=== PATIENT | female | born 1965 | race Caucasian/White ===

== ENCOUNTER 2020-04-04 22:39 | Inpatient (IN) | payer OTHER ==
[~2020-04-04] VITALS: Ht 165.1 cm; Wt 113.1 kg
[~2020-04-04 22:39] MED LIST: HYDMOR2 PO; PROM25 PO
[2020-04-04 22:58] LABS: BASOPHILS ABSOLUTE AUTO 0.11 K/mm3 (0.00-0.23); BASOPHILS PERCENT AUTO 0 % (0-2); EOSINOPHILS ABSOLUTE AUTO 0.02 K/mm3 (0.00-0.68); EOSINOPHILS PERCENT AUTO 0 % (0-6); Hematocrit 36.8 % (33.0-51.0); Hemoglobin 12.1 g/dL (11.5-16.0); IMMATURE GRAN ABSOLUTE AUTO 1.23 K/mm3 (0.00-0.10); IMMATURE GRAN PERCENT AUTO 4 % (0-1); LYMPHOCYTES ABSOLUTE AUTO 2.17 K/mm3 (0.84-5.20); LYMPHOCYTES PERCENT AUTO 8 % (21-46); MONOCYTES ABSOLUTE AUTO 1.27 K/mm3 (0.16-1.47); MONOCYTES PERCENT AUTO 4 % (4-13); Mean Corpuscular HGB 28.1 pg (26.0-34.0); Mean Corpuscular HGB Conc 32.9 g/dL (31.5-36.5); Mean Corpuscular Volume 86 fL (80-100); Mean Platelet Volume 11.5 fL (9.1-12.4); NEUTROPHILS ABSOLUTE AUTO 23.94 K/mm3 (1.96-9.15); NEUTROPHILS PERCENT AUTO 83 % (41-73); Platelet Count 338 K/mm3 (150-400); RDW Coefficient Variation 15.3 % (11.7-14.2); RDW Standard Deviation 47.6 fL (35.1-46.3); White Blood Cell Count 28.74 K/mm3 (4.00-11.30)
[2020-04-04 23:16] LABS: Alanine Aminotransfer (ALT/SGP 195 U/L (12-78); Albumin, Blood 1.7 g/dL (3.4-5.0); Albumin/Globulin Ratio 0.3 (0.8-1.8); Alk Phos 284 U/L (50-136); Anion Gap 10 mmol/L (6-16); Aspartate Aminotrans (AST/SGOT 181 U/L (12-37); Bilirubin, Total 5.2 mg/dL (0.1-1.0); Blood Urea Nitrogen 18 mg/dL (8-24); CO2, Blood 24 mmol/L (21-32); Calcium, Blood 8.1 mg/dL (8.5-10.1); Chloride, Blood 100 mmol/L (98-108); Creatinine, Blood 0.86 mg/dL (0.40-1.00); Globulin, Blood 5.5 g/dL (2.2-4.0); Glomerular Filtration Rate >60 (60-); Glucose, Blood 135 mg/dL (70-99); Potassium, Blood 3.7 mmol/L (3.5-5.5); Sodium, Blood 134 mmol/L (136-145); Total Protein, Blood 7.2 g/dL (6.4-8.2)
[2020-04-05 01:11] LABS: International Normalized Ratio 1.15; Prothrombin Time Results 12.2 Sec (9.7-11.5)
[2020-04-05 04:59] LABS: Influenza A, PCR Negative (NEGATIVE); Influenza B, PCR Negative (NEGATIVE); Resp Syncytial Virus, PCR Negative (NEGATIVE); SARS-Cov-2 (COVID-19) PCR, MMC Negative (NEGATIVE)
[2020-04-05 08:05] LABS: Source, Urine Clean Catch
[2020-04-05 08:12] LABS: Blood, Urine 2+ (Neg); Color, Urine Amber (P-Yellow); Glucose Qualitative, Urine Neg (Neg); Ketones, Urine 1+ (Neg); Leukocyte Esterase, Urine 1+ (Neg); Nitrite, Urine Pos (Neg); Protein, Urine 2+ (Neg); Urobilinogen, Urine 4+ (Normal)
[2020-04-05 08:23] LABS: Appearance, Urine Hazy (Clear); Bilirubin, Urine 3+ (Neg)
[2020-04-05 08:26] LABS: Bacteria Mod /hpf; Squamous Epithelial Cells Mod /hpf (Few)
[2020-04-05 08:28] LABS: Granular Casts 0-2 /lpf (0)
--- NOTE | 2020-04-05 09:30 | NUR ---
pt to mri via gurney. pt very anxious to be at hospital due to previous experience and anxiety related to mri. patient educated on breathing techniques and stated she will do the mri. boyfriend at bedside as patient desats with anxiety. on 3L at this time sats 90% or higher. pain managed when in bed.
--- NOTE | 2020-04-05 09:33 | NUR ---
pt arrived from er via gurney, able to transfer with minimal assist, she reports pain with movement and nausea. once in bed pain is better. aa0x4. denies pain anywhere but r side abdomen. pt educated on npo status and iv fluids infusing from er. swabs provided for comfort and call light in reach.
[2020-04-05 12:05] LABS: Albumin, Blood 1.7 g/dL (3.4-5.0); Albumin/Globulin Ratio 0.3 (0.8-1.8); Bilirubin, Total 4.9 mg/dL (0.1-1.0); Bun/Creatinine Ratio 24.5 (12.0-20.0); Calcium, Blood 7.3 mg/dL (8.5-10.1); Creatinine, Blood 1.1 mg/dL (0.40-1.00); Globulin, Blood 4.9 g/dL (2.2-4.0); Potassium, Blood 3.7 mmol/L (3.5-5.5); Total Protein, Blood 6.6 g/dL (6.4-8.2)
--- NOTE | 2020-04-05 17:37 | NUR ---
SHIFT SUMMARY PT AA0X4. PAIN MANAGED PER EMAR. PT CURRENTLY SITLL OUT IN SURGERY. PT VOIDING DURING SHIFT, REQUIRING 3L OXYGEN. PT DESATS WITH ANXIETY BUT RECOVERS ONCE COACHED ON BREATHING. PT WAS NPO BEFORE LEAVING FOR SURGERY PER ORDERS.
--- NOTE | 2020-04-05 19:10 | NUR ---
RECIEVED CRITICAL VALUE FROM [facility] IN LAB OF GR[facility] - RODS IN [address] ROMERO, AWAITING RETURN CALL. NIGHT TIME INSURANCE OFFICE MANAGER AWARE, WILL PASS OFF TO RN TAKING OVER CARE OF PT.
--- NOTE | 2020-04-06 04:34 | NUR ---
SHIFT SUMMARY POD0 LAP CIARRA, A/O, WILEY. CAME BACK FROM PACU W/ BIPAP, TRANSITIONED TO NC @ 5L WHEN STABLE AND SAFE TO DO SO W/ SAT > 90%, TOLERATING CLEAR FLUIDS, VOIDING WELL, NO BM THIS SHIFT, UP TWICE SO FAR THIS SHIFT, PAIN CONTROLLED PER EMAR. PT ANXIOUS BUT STABLE W/ SO IN ROOM @ BEDSIDE. CALL LIGHT IN REACH, WILL CONTINUE TO MONITOR AND REPORT TO ONCOMING DAY RN.
[2020-04-06 08:27] LABS: BASOPHILS ABSOLUTE AUTO 0.11 K/mm3 (0.00-0.23); BASOPHILS PERCENT AUTO 1 % (0-2); EOSINOPHILS PERCENT AUTO 0 % (0-6); Hematocrit 32.9 % (33.0-51.0); Hemoglobin 10.6 g/dL (11.5-16.0); IMMATURE GRAN ABSOLUTE AUTO 0.48 K/mm3 (0.00-0.10); IMMATURE GRAN PERCENT AUTO 2 % (0-1); LYMPHOCYTES ABSOLUTE AUTO 1.05 K/mm3 (0.84-5.20); LYMPHOCYTES PERCENT AUTO 4 % (21-46); MONOCYTES PERCENT AUTO 2 % (4-13); Mean Corpuscular HGB 28.6 pg (26.0-34.0); Mean Corpuscular HGB Conc 32.2 g/dL (31.5-36.5); Mean Corpuscular Volume 89 fL (80-100); Mean Platelet Volume 11.1 fL (9.1-12.4); NEUTROPHILS ABSOLUTE AUTO 21.61 K/mm3 (1.96-9.15); NEUTROPHILS PERCENT AUTO 91 % (41-73); Platelet Count 254 K/mm3 (150-400); RDW Coefficient Variation 15.8 % (11.7-14.2); RDW Standard Deviation 51.6 fL (35.1-46.3); Red Blood Cell Count 3.71 M/mm3 (3.80-5.20); White Blood Cell Count 23.75 K/mm3 (4.00-11.30)
[2020-04-06 09:07] LABS: Alanine Aminotransfer (ALT/SGP 928 U/L (12-78); Albumin, Blood 1.5 g/dL (3.4-5.0); Albumin/Globulin Ratio 0.3 (0.8-1.8); Alk Phos 276 U/L (50-136); Anion Gap 9 mmol/L (6-16); Aspartate Aminotrans (AST/SGOT 1343 U/L (12-37); Bilirubin, Total 3.2 mg/dL (0.1-1.0); Blood Urea Nitrogen 36 mg/dL (8-24); Bun/Creatinine Ratio 54.2 (12.0-20.0); CO2, Blood 23 mmol/L (21-32); Calcium, Blood 7.6 mg/dL (8.5-10.1); Chloride, Blood 102 mmol/L (98-108); Creatinine, Blood 0.66 mg/dL (0.40-1.00); Globulin, Blood 4.9 g/dL (2.2-4.0); Glomerular Filtration Rate >60 (60-); Glucose, Blood 155 mg/dL (70-99); Potassium, Blood 4.2 mmol/L (3.5-5.5); Sodium, Blood 134 mmol/L (136-145); Total Protein, Blood 6.4 g/dL (6.4-8.2)
--- NOTE | 2020-04-06 15:24 | NUR ---
Uponreceiving an admit referral for spiritual care, I visit patient. Patient is sitting in a chair and alert. Patient's friend, Billy, is present in the room. Patient tells me about the trauma she expereinced when her in this hospital and so the anxiety she had as a patient coming back to the same location and needing surgery. Patient said that she was almost unmanagable. On the other side of a successful surgery patient states that she is more calm . Patient talks about her yancy and the love and help she has gained from the people in jewish and the times of prayer is immeasurable. Patient welcomes prayer. I gladly provide prayer. I also normalize her experience and provide anxiety containment. Patient responds well and and shows signs of increased peace. I will continue to remain available to patient and family.
--- NOTE | 2020-04-06 20:15 | NUR ---
SHIFT SUMMARY PT IS POD#1 FROM [facility] WITH DR. ROMERO. PAIN MANAGED WITH TYLENOL, ADVIL AND DILAUDID. PT AMBULATED X2 IN THE HALWAY. PT EDUCATED/ENCOURAGED TO USE IS. PT REMAINS ON 4L O2 AND DESATURATES INTO THE LOW 80'S WHEN OFF OXYGEN. PT VOIDING WELL AND TOLERATING CLEAR LIQUID. PT DENIES PASSING FLATUS. VSS. REPORT GIVEN TO AKHIL GILBERT.
--- NOTE | 2020-04-07 03:41 | NUR ---
SHIFT SUMMARY: POD 2 LAP RAJIV PATIENT IS ALERT AND ORIENTED X4 WHILE AWAKE. PATIENT HAS BEEN SLEEPING MAJORITY OF THE SHIFT BUT IS EASILY AROUSABLE. PATIENT IS ON 4L OXYGEN NC SINCE SHE DESATURATES QUICKLY WHEN AMBULATING TO BATHROOM OR IN HALLWAYS. WHEN PATIENT IS ON THE 4L OXYGEN HER OXYGEN SATURATIONS ARE >90%. ENCOURAGED INCENTIVE SPIROMETER USE WHILE AWAKE. PAIN IS MANAGED WITH TYLENOL, ADVIL, AND IV DILAUDID. SHE AMBULATED A TOTAL OF 3 TIMES BEFORE GOING TO BED. SHE IS A SBA WITH GAIT BELT AND FWW. SHE TOLERATES AMBULATION WELL. PATIENT HAS BEEN VOIDING AND TOLERATING PO INTAKE. SHE HAS A RUTH DRAIN AND 3 LAP SITES WELL AN ABD BINDER ON. RUTH DRAIN HAS RED OUTPUT COMING FROM IT. ABD BINDER AND LAP SITES ARE C/D/I. THE PLAN IS TO WEAN PATIENT OFF OF OXYGEN IF POSSIBLE AND CONTINUE TO ENCOURAGE AMBULATION/INCENTIVE SPIROMETER USE.
[2020-04-07 05:39] LABS: BASOPHILS ABSOLUTE AUTO 0.07 K/mm3 (0.00-0.23); BASOPHILS PERCENT AUTO 0 % (0-2); EOSINOPHILS ABSOLUTE AUTO 0.01 K/mm3 (0.00-0.68); EOSINOPHILS PERCENT AUTO 0 % (0-6); Hematocrit 34.2 % (33.0-51.0); Hemoglobin 10.7 g/dL (11.5-16.0); IMMATURE GRAN ABSOLUTE AUTO 0.51 K/mm3 (0.00-0.10); IMMATURE GRAN PERCENT AUTO 3 % (0-1); LYMPHOCYTES ABSOLUTE AUTO 1.71 K/mm3 (0.84-5.20); LYMPHOCYTES PERCENT AUTO 9 % (21-46); MONOCYTES ABSOLUTE AUTO 0.67 K/mm3 (0.16-1.47); MONOCYTES PERCENT AUTO 4 % (4-13); Mean Corpuscular HGB 27.9 pg (26.0-34.0); Mean Corpuscular HGB Conc 31.3 g/dL (31.5-36.5); Mean Corpuscular Volume 89 fL (80-100); Mean Platelet Volume 11.1 fL (9.1-12.4); NEUTROPHILS ABSOLUTE AUTO 15.37 K/mm3 (1.96-9.15); NEUTROPHILS PERCENT AUTO 84 % (41-73); NRBC ABSOLUTE 0.02 K/mm3 (0.00-0.02); NRBC Auto 0.1 /100 WBC (0.0-0.2); Platelet Count 268 K/mm3 (150-400); RDW Coefficient Variation 15.9 % (11.7-14.2); RDW Standard Deviation 51.5 fL (35.1-46.3); Red Blood Cell Count 3.83 M/mm3 (3.80-5.20); White Blood Cell Count 18.34 K/mm3 (4.00-11.30)
[2020-04-07 06:04] LABS: Albumin, Blood 1.6 g/dL (3.4-5.0); Albumin/Globulin Ratio 0.3 (0.8-1.8); Bilirubin, Total 2.3 mg/dL (0.1-1.0); Bun/Creatinine Ratio 33.1 (12.0-20.0); Calcium, Blood 7.8 mg/dL (8.5-10.1); Creatinine, Blood 1.21 mg/dL (0.40-1.00); Globulin, Blood 4.8 g/dL (2.2-4.0); Potassium, Blood 3.8 mmol/L (3.5-5.5); Total Protein, Blood 6.4 g/dL (6.4-8.2)
--- NOTE | 2020-04-07 09:22 | NUR ---
04/07/20 0922 Malia Mcmanus VERIFICATIONS: EDIT CHART.
--- NOTE | 2020-04-07 18:27 | NUR ---
SHIFT SUMMARY PT IS POD#2 [address] [facility] WITH [address]. ROMERO. PT HAS BEEN ABLE TO AMBULATE INDEPENDENTLY AND REQUIRES LITTLE ASSISTANCE WITH LINES AND TUBES. PT PASSED FLATUS TODAY. SHE HAS TOLERATED REGULAR DIET. DR. GUEVARA WAS CONSULTED TO MANAGED RENAL AND LIVER CONCERS. DR. GUEVARA ALSO MADE ADJUSTMENTS TO ANTIBIOTICS. VSS. WILL MONITOR UNTIL REPORT TO ONCOMING RN.
--- NOTE | 2020-04-08 03:03 | NUR ---
SHIFT SUMMARY: POD 3 LAP RAJIV PATIENT IS ALERT AND ORIENTED X4 WHILE AWAKE. SHE HAS BEEN ABLE TO AMBULATE INDEPENDENTLY IN THE ROOM, BUT WILL CALL FOR ASSISTANCE WITH LINES AND TUBES. VS ARE WNL AND IS ON 2L OXYGEN NC. HER OXYGEN SATS ARE >90%. PAIN IS CONTROLLED WITH PO ULTRAM AND IV DILAUDID. SHE IS ABLE TO PASS GAS DURING THE NIGHT. SHE IS TOLERATING PO INTAKE AND IS VOIDING. HER RUTH DRAIN HAS SEROSANGUINEOUS OUTPUT. BULB IS COMPRESSED. ABD BINDER WAS RE-ADJUSTED FOR PATIENT TO GIVE HER MORE COMFORT. SHE WAS ABLE TO AMBULATE IN THE HALLWAY THIS MORNING. SHE CALLS APPROPRIATELY. BOYFRIEND IS IN THE ROOM WITH HER AND ASSISTS WHEN POSSIBLE. CALL LIGHT WITHIN REACH. THE PLAN IS TO MANAGE RENAL AND LIVER CONCERNS WITH DR. GUEVARA WELL CONTINUE ABX WITH FLUIDS.
[2020-04-08 08:37] LABS: BASOPHILS ABSOLUTE AUTO 0.05 K/mm3 (0.00-0.23); BASOPHILS PERCENT AUTO 0 % (0-2); EOSINOPHILS ABSOLUTE AUTO 0.04 K/mm3 (0.00-0.68); EOSINOPHILS PERCENT AUTO 0 % (0-6); Hematocrit 31.7 % (33.0-51.0); Hemoglobin 9.8 g/dL (11.5-16.0); IMMATURE GRAN ABSOLUTE AUTO 0.86 K/mm3 (0.00-0.10); IMMATURE GRAN PERCENT AUTO 5 % (0-1); LYMPHOCYTES ABSOLUTE AUTO 1.65 K/mm3 (0.84-5.20); LYMPHOCYTES PERCENT AUTO 10 % (21-46); MONOCYTES ABSOLUTE AUTO 1.12 K/mm3 (0.16-1.47); MONOCYTES PERCENT AUTO 7 % (4-13); Mean Corpuscular HGB 27.6 pg (26.0-34.0); Mean Corpuscular HGB Conc 30.9 g/dL (31.5-36.5); Mean Corpuscular Volume 89 fL (80-100); NEUTROPHILS ABSOLUTE AUTO 13.39 K/mm3 (1.96-9.15); NEUTROPHILS PERCENT AUTO 78 % (41-73); Platelet Count 215 K/mm3 (150-400); RDW Coefficient Variation 15.6 % (11.7-14.2); RDW Standard Deviation 51.9 fL (35.1-46.3); Red Blood Cell Count 3.55 M/mm3 (3.80-5.20); White Blood Cell Count 17.11 K/mm3 (4.00-11.30)
[2020-04-08 09:00] LABS: Alanine Aminotransfer (ALT/SGP 678 U/L (12-78); Albumin, Blood 1.5 g/dL (3.4-5.0); Albumin/Globulin Ratio 0.3 (0.8-1.8); Alk Phos 290 U/L (50-136); Anion Gap 6 mmol/L (6-16); Aspartate Aminotrans (AST/SGOT 466 U/L (12-37); Blood Urea Nitrogen 22 mg/dL (8-24); Bun/Creatinine Ratio 30.4 (12.0-20.0); CO2, Blood 26 mmol/L (21-32); Calcium, Blood 7.3 mg/dL (8.5-10.1); Chloride, Blood 104 mmol/L (98-108); Creatinine, Blood 0.72 mg/dL (0.40-1.00); Globulin, Blood 4.6 g/dL (2.2-4.0); Glomerular Filtration Rate >60 (60-); Glucose, Blood 130 mg/dL (70-99); Potassium, Blood 4.2 mmol/L (3.5-5.5); Sodium, Blood 136 mmol/L (136-145); Total Protein, Blood 6.1 g/dL (6.4-8.2)
--- NOTE | 2020-04-08 12:12 | NUR ---
Patient is lying in bed. Patient's friend, Billy, is bedside. Billy tells me about patient's rough night and the new diagnosis of Pneumonia. He explains that she is down today and could use extra support. Patient tells me personal information about her anxiety. I provide therapeutic listening, pastoral encouraging classification counselor and prayer. Patient responds well and states that she feels much more hopeful. I will continue to assist patient with the spiritual content that she needs to stay up and motivated to be well.
--- NOTE | 2020-04-08 18:04 | NUR ---
Shift summary Pain controlled with Tramadol and 1mg Dilaudid every 4 hours. VSS. Patient on 2L O2 NC. Binder in place. RUTH drain putting out small amount sanguinous fluid. Patient independent to the bathroom. Had two soft brown stools today. Voiding. Patient tolerating small amount regular diet. Call light within patient reach.
[2020-04-08 18:16] LABS: Percent Saturation 21.1 % (15.0-50.0)
--- NOTE | 2020-04-09 04:36 | NUR ---
SHIFT SUMMARY PT IS A/O X4. IND IN ROOM. TOLERATING PO INTAKE, VOIDING, HAVING BMS. PT HAS HAD SOME NAUSEA AND PAIN OVERNIGHT AND HAS BEEN MEDICATED PER ORDERS PRN. USING 2L O2 NC WITH HUMIDIFIER. SEEN BY RT AND PROVIDED WITH FLUTTER THERAPY. IV FLUIDS INFUSING PER ORDERS OVERNIGHT. PT RESTING IN BED AT THIS TIME WITH CALL LIGHT IN REACH.
[2020-04-09 05:36] LABS: Hematocrit 29.3 % (33.0-51.0); Mean Corpuscular HGB 27.8 pg (26.0-34.0); Mean Corpuscular HGB Conc 30.7 g/dL (31.5-36.5); Mean Corpuscular Volume 90 fL (80-100); Mean Platelet Volume 10.9 fL (9.1-12.4); Platelet Count 140 K/mm3 (150-400); RDW Coefficient Variation 15.5 % (11.7-14.2); RDW Standard Deviation 51.3 fL (35.1-46.3); Red Blood Cell Count 3.24 M/mm3 (3.80-5.20); White Blood Cell Count 14.42 K/mm3 (4.00-11.30)
[2020-04-09 06:05] LABS: Alanine Aminotransfer (ALT/SGP 428 U/L (12-78); Albumin, Blood 1.4 g/dL (3.4-5.0); Albumin/Globulin Ratio 0.3 (0.8-1.8); Alk Phos 256 U/L (50-136); Anion Gap 5 mmol/L (6-16); Aspartate Aminotrans (AST/SGOT 170 U/L (12-37); BASOPHILS ABSOLUTE MAN 0.14 K/mm3 (0.00-0.23); BASOPHILS PERCENT MAN 1 % (0-2); Bilirubin, Total 1.5 mg/dL (0.1-1.0); Blood Urea Nitrogen 13 mg/dL (8-24); Bun/Creatinine Ratio 20.7 (12.0-20.0); CO2, Blood 27 mmol/L (21-32); Calcium, Blood 7.6 mg/dL (8.5-10.1); Chloride, Blood 104 mmol/L (98-108); Creatinine, Blood 0.63 mg/dL (0.40-1.00); EOSINOPHILS PERCENT MAN 0 % (0-6); Globulin, Blood 4.4 g/dL (2.2-4.0); Glomerular Filtration Rate >60 (60-); Glucose, Blood 127 mg/dL (70-99); LYMPHOCYTES ABSOLUTE MAN 1.87 K/mm3 (0.84-5.20); LYMPHOCYTES PERCENT MAN 13 % (21-46); METAMYELOCYTE ABSOLUTE MAN 0.57 K/mm3 (0.00-0.00); METAMYELOCYTE PERCENT MAN 4 % (0-0); MONOCYTES ABSOLUTE MAN 1.15 K/mm3 (0.16-1.47); MONOCYTES PERCENT MAN 8 % (4-13); NEUTROPHILS ABSOLUTE MAN 10.67 K/mm3 (1.96-9.15); Potassium, Blood 4.4 mmol/L (3.5-5.5); SEG NEUTROPHILS PERCENT MAN 74 % (41-73); Sodium, Blood 136 mmol/L (136-145); TOTAL CELLS COUNTED 100; Total Protein, Blood 5.8 g/dL (6.4-8.2)
--- NOTE | 2020-04-09 12:51 | NUR ---
PT TELLS ME SHE WILL AMBULATE AFTER RUTH IS REMOVED.
--- NOTE | 2020-04-09 14:29 | NUR ---
[id number] DR ROMERO HERE TO SEE PATIENT. RUTH DRAIN REMOVED BY DR ROMERO. INSTRUCTED PATIENT TO CONTINUE USING IS AND FLUTTER VALVE HOURLY AND TO AMBULATE. PT TELLS ME SHE WILL AMBULATE AFTER 1500 WHEN SHE HAS RECEIVED HER NEXT DOSE OF PAIN MEDICATION
--- NOTE | 2020-04-09 15:55 | NUR ---
Patient immediately tells me that she has improved strength and less pain and that she may be going home tomorrow. Billy is present in the rm and they both tell the story of their friendship that turned into a romance and about the deep betrayal, brokeness and pain that they had to work through to allow each other into their lives. They discuss their yancy and the ups and downs of it all. They both have stories of great tragedy and great triumph. I normalize their experience and highlight all that they have overcome. I encourage self-care and I provide spiritual guidance and prayer. They respond well and shows signs of being encouraged in thier yancy.
--- NOTE | 2020-04-09 17:45 | NUR ---
SUMMARY PT STATES SHE GOT UP TO BATHROOM AND IS NOW HAVING 9/10 ABD PAIN. PT WITH AUDIBLE WHEEZES, RAPID RESPIRATIONS, PT CALMED WITH REASSUSRANCE WITH DECREASEIN RESPIRATIONS AND RESOLUTION OF WHEEZES. EDUCATION TO PATIENT AND HER REGARDING AMBULATION, OOB, USE OF IS AND FLUTTER VALVE. PT DECLINES AMBULATION OR SHOWER. UP TO CHAIR WITH STANDBY ASSIST. PTS AT BEDSIDE. ABD BINDER IN PLACE
[2020-04-10 04:56] LABS: Hematocrit 30.4 % (33.0-51.0); Hemoglobin 9.2 g/dL (11.5-16.0); Mean Corpuscular HGB 27.6 pg (26.0-34.0); Mean Corpuscular HGB Conc 30.3 g/dL (31.5-36.5); Mean Corpuscular Volume 91 fL (80-100); Mean Platelet Volume 11.5 fL (9.1-12.4); Platelet Count 149 K/mm3 (150-400); RDW Coefficient Variation 15.3 % (11.7-14.2); RDW Standard Deviation 50.9 fL (35.1-46.3); Red Blood Cell Count 3.33 M/mm3 (3.80-5.20)
[2020-04-10 05:14] LABS: Anion Gap 4 mmol/L (6-16); Blood Urea Nitrogen 8 mg/dL (8-24); Bun/Creatinine Ratio 14.4 (12.0-20.0); CO2, Blood 31 mmol/L (21-32); Calcium, Blood 7.5 mg/dL (8.5-10.1); Chloride, Blood 104 mmol/L (98-108); Creatinine, Blood 0.56 mg/dL (0.40-1.00); Glomerular Filtration Rate >60 (60-); Glucose, Blood 121 mg/dL (70-99); Potassium, Blood 4.3 mmol/L (3.5-5.5); Sodium, Blood 139 mmol/L (136-145)
--- NOTE | 2020-04-10 05:41 | NUR ---
SHIFT SUMMARY PT IS A/O X4 AND IND IN ROOM. AT BEDSIDE OVERNIGHT AND ASSISTING WITH CARE. TOLERATING PO INTAKE AND VOIDING. REPORTS PASSING FLATUS AND BM'S. PAIN MANAGED WITH NORCO X2 AND ULTRAM PER ORDERS. UP TO CHAIR OVERNIGHT WITH ABD BINDER IN PLACE. NO ACUTE CHANGES OVERNIGHT. RESTING IN CHAIR WITH CALL LIGHT IN REACH.
[2020-04-10 06:09] LABS: BAND PERCENT MAN 2 % (0-8); BASOPHILS PERCENT MAN 0 % (0-2); EOSINOPHILS ABSOLUTE MAN 0.12 K/mm3 (0.00-0.68); EOSINOPHILS PERCENT MAN 1 % (0-6); LYMPHOCYTES ABSOLUTE MAN 0.49 K/mm3 (0.84-5.20); LYMPHOCYTES PERCENT MAN 4 % (21-46); METAMYELOCYTE ABSOLUTE MAN 0.12 K/mm3 (0.00-0.00); METAMYELOCYTE PERCENT MAN 1 % (0-0); MONOCYTES ABSOLUTE MAN 0.49 K/mm3 (0.16-1.47); MONOCYTES PERCENT MAN 4 % (4-13); MYELOCYTE ABSOLUTE MAN 0.36 K/mm3 (0.00-0.00); MYELOCYTE PERCENT MAN 3 % (0-0); SEG NEUTROPHILS PERCENT MAN 85 % (41-73); TOTAL CELLS COUNTED 100
[2020-04-10] MEDS ORDERED: HYDR1TAB94 PO (11:30)
[2020-04-10] MEDS ORDERED: CEPH500 PO ×2 (14:22→21:15)
[2020-04-10] MEDS ORDERED: METR500 PO (14:23)
[2020-04-10] MEDS ORDERED: PROBIOTIC1 EA13 PO (14:24)
--- NOTE | 2020-04-10 15:03 | NUR ---
[address] [facility] [place] DELIVERED PORTABLE OXYGEN TANK TO BEDSIDE.WRITTEN NORCO PRESCRIPTION GIVEN TO PATIENT. PRESCRIPTIONS FAXED TO [facility]. DISCHARGE INSTRUCTIONS REVIEWED WITH PATIENT AND PATIENTS BOYFRIEND AND BOTH VERBALIZE UNDERSTANDING OF DISCHARGE INSTRUCTIONS. PT TEARFUL AT TIMES, TELLS ME SHE IS HAVING A LOT OF ANXIETY BUT THAT SHE FEELS READY TO DISCHARGE TO HOME. PT DISCHARGED TO HOME WITH HER BOYFRIEND WHO WILL BE STAYING WITH PATIENT TO ASSIST HER
== END 2020-04-10 14:45 | disposition home or self-care (01) | DRG 853 ==
LOC: ER 22:39 → SURS 04-05 04:35 → ERHOLD 04-05 04:35 → SURS 04-05 08:06
PROVIDERS: Emergency Medicine; Internal Medicine; Student in an Organized Health Care Education/Training Program; ADMIT Surgery
PROC: BF141ZZ Fluoroscopy of Gallbladder, Bile Ducts and Pancreatic Ducts using Low Osmolar Contrast (ICD-10-PCS; 2020-04-05)
PROC: 5A09357 Assistance with Respiratory Ventilation, Less than 24 Consecutive Hours, Continuous Positive Airway Pressure (ICD-10-PCS; 2020-04-05)
PROC: 0FT44ZZ Resection of Gallbladder, Percutaneous Endoscopic Approach (ICD-10-PCS; principal; 2020-04-05 15:00)
DX: A41.51 Sepsis due to Escherichia coli [E. coli] (principal); J96.01 Acute respiratory failure with hypoxia; N17.0 Acute kidney failure with tubular necrosis; K80.00 Calculus of gallbladder with acute cholecystitis without obstruction; Z68.41 Body mass index [BMI] 40.0-44.9, adult; R65.20 Severe sepsis without septic shock; E66.01 Morbid (severe) obesity due to excess calories; K82.A1 Gangrene of gallbladder in cholecystitis; F41.0 Panic disorder [episodic paroxysmal anxiety]; E80.6 Other disorders of bilirubin metabolism; Z20.822 Contact with and (suspected) exposure to COVID-19
CPT/HCPCS: 0241U; 36415; 71046; 74177; 74300; 76705; 80048; 80053; 81001; 82607; 82728; 82746; 83540; 83550; 83605; 83690; 85025; 85610; 87040; 87077; 87086; 87186; 88304; 94660; 94667; 94761; 96365; 96375; 99285-25; A9270; C1729; J0696; J1100; J1170; J1650; J2185; J2250; J2270; J2405; J2704; J3010; J7030; J7050; J7120; Q9967

== ENCOUNTER 2020-04-29 11:35 | Inpatient (IN) | payer OTHER ==
[~2020-04-29] VITALS: Ht 165.1 cm; Wt 110.0 kg
[~2020-04-29 11:35] MED LIST changes: +CEPH500 PO; +HYDR1TAB94 PO; +METR500 PO; +PROBIOTIC1 EA13 PO
[2020-04-29 12:00] LABS: BASOPHILS ABSOLUTE AUTO 0.04 K/mm3 (0.00-0.23); BASOPHILS PERCENT AUTO 0 % (0-2); EOSINOPHILS ABSOLUTE AUTO 0.01 K/mm3 (0.00-0.68); EOSINOPHILS PERCENT AUTO 0 % (0-6); Hematocrit 34.1 % (33.0-51.0); Hemoglobin 11.1 g/dL (11.5-16.0); IMMATURE GRAN ABSOLUTE AUTO 0.14 K/mm3 (0.00-0.10); IMMATURE GRAN PERCENT AUTO 1 % (0-1); LYMPHOCYTES ABSOLUTE AUTO 1.44 K/mm3 (0.84-5.20); LYMPHOCYTES PERCENT AUTO 12 % (21-46); MONOCYTES ABSOLUTE AUTO 0.64 K/mm3 (0.16-1.47); MONOCYTES PERCENT AUTO 6 % (4-13); Mean Corpuscular HGB 27.7 pg (26.0-34.0); Mean Corpuscular HGB Conc 32.6 g/dL (31.5-36.5); Mean Corpuscular Volume 85 fL (80-100); Mean Platelet Volume 9.3 fL (9.1-12.4); NEUTROPHILS PERCENT AUTO 81 % (41-73); Platelet Count 502 K/mm3 (150-400); RDW Coefficient Variation 15.2 % (11.7-14.2); RDW Standard Deviation 47.5 fL (35.1-46.3); Red Blood Cell Count 4.01 M/mm3 (3.80-5.20); White Blood Cell Count 11.57 K/mm3 (4.00-11.30)
[2020-04-29 12:21] LABS: Alanine Aminotransfer (ALT/SGP 41 U/L (12-78); Albumin, Blood 2.7 g/dL (3.4-5.0); Albumin/Globulin Ratio 0.5 (0.8-1.8); Alk Phos 309 U/L (50-136); Anion Gap 9 mmol/L (6-16); Aspartate Aminotrans (AST/SGOT 32 U/L (12-37); Bilirubin, Total 0.8 mg/dL (0.1-1.0); Blood Urea Nitrogen 9 mg/dL (8-24); Bun/Creatinine Ratio 12.4 (12.0-20.0); CO2, Blood 23 mmol/L (21-32); Chloride, Blood 103 mmol/L (98-108); Creatinine, Blood 0.73 mg/dL (0.40-1.00); Globulin, Blood 5.6 g/dL (2.2-4.0); Glomerular Filtration Rate >60 (60-); Glucose, Blood 117 mg/dL (70-99); Potassium, Blood 3.9 mmol/L (3.5-5.5); Sodium, Blood 135 mmol/L (136-145); Total Protein, Blood 8.3 g/dL (6.4-8.2)
[2020-04-29 21:52] LABS: Influenza A, PCR NEGATIVE (NEGATIVE); Influenza B, PCR NEGATIVE (NEGATIVE); Resp Syncytial Virus, PCR NEGATIVE (NEGATIVE); SARS-Cov-2 (COVID-19) PCR, MMC NEGATIVE (NEGATIVE)
[2020-04-30 05:14] LABS: BASOPHILS ABSOLUTE AUTO 0.06 K/mm3 (0.00-0.23); BASOPHILS PERCENT AUTO 1 % (0-2); EOSINOPHILS ABSOLUTE AUTO 0.01 K/mm3 (0.00-0.68); EOSINOPHILS PERCENT AUTO 0 % (0-6); Hematocrit 32.9 % (33.0-51.0); Hemoglobin 10.1 g/dL (11.5-16.0); IMMATURE GRAN ABSOLUTE AUTO 0.14 K/mm3 (0.00-0.10); IMMATURE GRAN PERCENT AUTO 1 % (0-1); LYMPHOCYTES ABSOLUTE AUTO 1.84 K/mm3 (0.84-5.20); LYMPHOCYTES PERCENT AUTO 19 % (21-46); MONOCYTES ABSOLUTE AUTO 1.03 K/mm3 (0.16-1.47); MONOCYTES PERCENT AUTO 10 % (4-13); Mean Corpuscular HGB 27.3 pg (26.0-34.0); Mean Corpuscular HGB Conc 30.7 g/dL (31.5-36.5); Mean Corpuscular Volume 89 fL (80-100); Mean Platelet Volume 9.4 fL (9.1-12.4); NEUTROPHILS ABSOLUTE AUTO 6.89 K/mm3 (1.96-9.15); NEUTROPHILS PERCENT AUTO 69 % (41-73); Platelet Count 449 K/mm3 (150-400); RDW Coefficient Variation 15.5 % (11.7-14.2); RDW Standard Deviation 50.4 fL (35.1-46.3); White Blood Cell Count 9.97 K/mm3 (4.00-11.30)
--- NOTE | 2020-04-30 05:41 | NUR ---
SHIFT SUMMARY PT ARRIVED FROM ER VIA STRETCHER APPROXIMATELY @ 2345; SLIDER SHEET WAS USED TO TRANSFER PT TO BED; S/O AT BEDSIDE; PT A&O X 4; VSS; DENIES CHEST PAIN; O2 SATS >93 ON 2L NC; PT RA AT BASELINE; C/O SEVERE BACK PAIN, WINCES AND CRIES OUT W/ MOVEMENT; SAS ANALYST W/ DILAUDID SET UP; S/O ALLOWED TO STAY FOR ADMISSION AND ALLOW TO COMFORT PT, LEFT APPROXIMATELY @ 0120; PT STATES SHE HAS ANXIETY AND GETS VERY SCARED BY HERSELF; RE ETCHER STARTED NEW IV; VANCO AND ROCEPHIN ADMINISTERED; PT NPO IN PREPARATION FOR PROCEDURE; CONSULT CALLED INTO INF DISEASES AND PALLIATIVE CARE; CALL LIGHT IN REACH; BED IN LOWEST POSITION; WILL CONTINUE TO MONITOR CLOSELY UNTIL HAND OFF TO DAY SHIFT RN.
[2020-04-30 05:51] LABS: Anion Gap 10 mmol/L (6-16); Blood Urea Nitrogen 9 mg/dL (8-24); Bun/Creatinine Ratio 12.6 (12.0-20.0); CO2, Blood 24 mmol/L (21-32); Calcium, Blood 8.7 mg/dL (8.5-10.1); Chloride, Blood 101 mmol/L (98-108); Creatinine, Blood 0.71 mg/dL (0.40-1.00); Glomerular Filtration Rate >60 (60-); Glucose, Blood 119 mg/dL (70-99); Potassium, Blood 3.8 mmol/L (3.5-5.5); Sodium, Blood 135 mmol/L (136-145)
--- NOTE | 2020-04-30 09:50 | NUR ---
PATIENT DOWN TO IMAGING FOR PROCEDURE VIA GURNEY. PATIENT HAS BEEN NPO SINCE MIDNIGHT. DILAUDID MOTOR BRAKEMAN AND IV FLUIDS DOWN WITH PATIENT PER IMAGING'S REQUEST. MOTOR BRAKEMAN CLEARED PRIOR TO PATIENT GOING DOWN TO IMAGING.
--- NOTE | 2020-04-30 11:30 | NUR ---
SPOKE WITH DR. KUHN REGARDING PATIENT. CT WAS UNABLE TO OBTAIN FLUID BUT THEY DID OBTAIN TISSUE AND SENT IT TO THE LAB. ORDERS RECEIVED FOR CULTURE AND PATHOLOGY OF SPECIMEN. STATES HE SPOKE WITH DR. MORAES REGARDING PATIENT AND THAT DR. MORAES WILL BE IN TO SEE PATIENT THIS AFTERNOON. ORDERS RECEIVED TO DEMETRICE DOUGHERTY. NOTIFIED HIM PATIENT HAD ONE POSITIVE BLOOD CULTURE FOR GRAM NEGATIVE BACILLI, DR. KUHN STATES PATIENT HAD POSITIVE BLOOD CULTURES DURING HOSPITALIZATION FOR PRIOR SURGERY. PATIENT DID HAVE SOME NAUSEA AND VOMITING AFTER RETURNING FROM PROCEDURE. PATIENT STATES DILAUDID IT COORDINATOR IS ADEQUATELY CONTROLLING HER PAIN. ORDERS RECEIVED FOR REGULAR DIET.
--- NOTE | 2020-04-30 12:18 | NUR ---
DR. MORAES AT BEDSIDE. NOTIFIED HIM THAT THEY WEREN'T ABLE TO OBTAIN FLUID DURING BIOPSY BUT THAT THEY DID SEND TISSUE. NOTIFIED HIM OF POSITIVE BLOOD CULTURE FOR GRAM NEGATIVE BACILLI.
--- NOTE | 2020-04-30 12:50 | NUR ---
Spiritual care visit conducted. Patient is lying in bed and alert. Patient tells me about her infection and the pain it is causing. Patient is tearful at times about the difficulty of her medical condition, her anxiety and the restrictions on visitors. I normalize her experience, reinforce helpful attitudes and provide therapeutic listening, anxiety containment and prayer. Patient responds well and shows signs of increased peace. I will continue to remain available to patient and family.
--- NOTE | 2020-04-30 19:10 | NUR ---
ASSUMED CARE RECEIVED BEDSIDE REPORT FROM HUMAIRARN; PT A&O X 4; VSS; DENIES CHEST PAIN; O2 SATS >93 ON RA, NC STILL IN PLACE; RT TO BEDSIDE TO ASSESS; PT DENIED CPAP; DILAUDID PUBLIC SAFETY DISPATCHER IN PLACE; PT STATES RELIEF; DENIES OTHER NEEDS AT THIS TIME; CALL LIGHT IN REACH; BED IN LOWEST POSITION.
--- NOTE | 2020-04-30 19:34 | NUR ---
SHIFT SUMMARY: PATIENT A/OX3. DILAUDID CLAY PROCESSING LABOURER INFUSING PER EMAR, PATIENT STATES THAT IT IS ADEQUATELY CONTROLLING HER PAIN. PATIENT WAS ON 2L O2 VIA NC THIS AM, NOW IS ON ROOM AIR. SINUS RHYTHM ON TELE. CT BIOPSY COMPLETED AND SAMPLES SENT TO LAB. HAD ONE EMESIS AFTER RETURNING TO ROOM FROM PROCEDURE. TOLERATING REGULAR DIET. UP TO BSC WITH 1 SBA. PLAN IS FOR OUTPATIENT IV ABX. REPORT GIVEN TO ONCOMING RN.
--- NOTE | 2020-04-30 19:55 | NUR ---
TECHNICAL SERVICE REP NIETO GIVEN TO JAMIL READ RN WHO STATES SHE WILL RETURN TO [facility].
[2020-05-01 04:08] LABS: Hematocrit 30.7 % (33.0-51.0); Hemoglobin 9.6 g/dL (11.5-16.0); Mean Corpuscular HGB 27.5 pg (26.0-34.0); Mean Corpuscular HGB Conc 31.3 g/dL (31.5-36.5); Mean Corpuscular Volume 88 fL (80-100); Mean Platelet Volume 9.1 fL (9.1-12.4); Platelet Count 410 K/mm3 (150-400); RDW Coefficient Variation 15.1 % (11.7-14.2); RDW Standard Deviation 48.6 fL (35.1-46.3); Red Blood Cell Count 3.49 M/mm3 (3.80-5.20); White Blood Cell Count 6.85 K/mm3 (4.00-11.30)
[2020-05-01 04:30] LABS: Alanine Aminotransfer (ALT/SGP 64 U/L (12-78); Albumin, Blood 2.2 g/dL (3.4-5.0); Albumin/Globulin Ratio 0.4 (0.8-1.8); Alk Phos 327 U/L (50-136); Anion Gap 4 mmol/L (6-16); Aspartate Aminotrans (AST/SGOT 59 U/L (12-37); Bilirubin, Total 0.6 mg/dL (0.1-1.0); Blood Urea Nitrogen 5 mg/dL (8-24); Bun/Creatinine Ratio 8.1 (12.0-20.0); CO2, Blood 29 mmol/L (21-32); Calcium, Blood 8.7 mg/dL (8.5-10.1); Chloride, Blood 103 mmol/L (98-108); Creatinine, Blood 0.62 mg/dL (0.40-1.00); Globulin, Blood 5.1 g/dL (2.2-4.0); Glomerular Filtration Rate >60 (60-); Glucose, Blood 118 mg/dL (70-99); Phosphorus, Blood 3.8 mg/dL (2.5-4.9); Potassium, Blood 3.7 mmol/L (3.5-5.5); Sodium, Blood 136 mmol/L (136-145); Total Protein, Blood 7.3 g/dL (6.4-8.2)
--- NOTE | 2020-05-01 06:40 | NUR ---
SHIFT SUMMARY PT A&O X 4; BECOMES ANXIOUS AND TEARFUL AT TIMES; VSS; DENIES CHEST PAIN; O2 SATS >93 ON RA - PLACED ON 1L NC DUE TO PT BEING OVERLY CONCERNED W/ SATURATION AND SLEEPING, HOWEVER REFUSED CPAP; DILAUDID DRY KILN OPERATOR HELPER IN PLACE; PT STATES RELIEF AND ABILITY TO SLEEP; DRY KILN OPERATOR HELPER RELOADED THIS AM; SBA TO BSC; CALLS APPROPRIATELY; CALL LIGHT IN REACH; BED IN LOWEST POSITION; WILL CONTINUE TO MONITOR CLOSELY UNTIL HAND OFF TO DAY SHIFT RN.
--- NOTE | 2020-05-01 10:41 | NUR ---
DISCHARGE: PT ALERT AND ORIENTED X4 ON ROOM AIR SATING ABOVE 92%. TELE SHOWING NSR WITH HR 60-70'S. DENIES CHEST PAIN/PRESSURE. DENIES OVERALL PAIN. OCCASIONAL COUGH, NONPRODUCTIVE. RIGHT RADIAL SITE OBSERVED, NO SIGNS OF BLEEDING, HEMATOMA. NONTENDER AND ARMBOARD IN PLACE. POST ANGIO EDUCATION PROVIDED. DISCHARGE INSTRUCTIONS PROVIDED, QUESTIONS ANSWERED AND IV TAKEN OUT PER PROTOCOL. PT SON TO MUD ENGINEER. WHEELED VEHICLE TO GO HOME.
--- NOTE | 2020-05-01 13:35 | NUR ---
Spiritual care visit conducted. Patient tells me that she, most likely, will not have to have surgery and possibly may go home Monday ([facility] She says that she is exhausted but very hopeful about her recovery and that there is an end in sight to the pain. Patient shares about her need for spiritual encouragement and her gratitude that [facility] has a Spiritual Care Pastors. I rejoice with patient's good news and provide pastoral staff counselor and prayer. Patient responds well and displays evidence of being encouraged in her yancy. I will continue to remain available to patient and family.
--- NOTE | 2020-05-01 14:19 | NUR ---
TRANSFER TO SURGICAL: PT ALERT AND ORIENTED X4. ON ROOM AIR SATING ABOVE 92%. WHEN SHOWERING AND AT TIMES SLEEPING PT ON 1 L O2 TO MAINTAIN SATURATION. TELE SHOWING SINUS RHYTHM. DENIES CHEST PAIN. COMPLAINS OF LOWER BACK PAIN THAT RADIATES TO LEGS AT TIMES. PAIN REDUCED WITH MANIFOLD BUILDER PUMP, UNINTERUPTED REST AND REPOSITIONING. UP TO BSC WITH 1 ASSIST. RIGHT AC IV SALINE LOCKED AND FLUSHING WELL. LEFT WRIST IV INFUSIN NS AND MANIFOLD BUILDER PUMP. PT EDUCATED MONORAIL CRANE OPERATOR LIGHT AND FALL PREVENTION. WILL CONTINUE TO MONITOR UNTIL TRANSFER.
--- NOTE | 2020-05-01 14:32 | NUR ---
REPORT RECEIVED FROM MICHAEL GILBERT. PT TRANSFERRED VIA WHEELCHAIR WITH OUTSOLE CUTTER MACHINE IN PLACE. CALL TO PICC NURSE ON MEDICAL FLOOR WHO STATED WE WOULD HAVE TO WAIT FOR BLOOD CULTURES FOR PLACEMENT. MESSAGE LEFT WITH PICC RN FOR WEEKEND AND NOTE AT NURSES STATION FOR WEEKEND FOLLOW UP. PT DENIES FURTHER NEEDS AT THIS TIME.
--- NOTE | 2020-05-01 17:59 | NUR ---
SHIFT SUMMARY: PT WITH DOUGH MOLDER RUNNING THAT HAS GIVEN PT DECENT MANAGEMENT THIS SHIFT. SHE STATES MANAGEMENT IS GOOD UNTIL SHE TRIES TO DO TOO MUCH. ENCOURAGED HER TO LISTEN TO HER BODY AND EDUCATED ON TOO MUCH ACTIVITY VS NOT ENOUGH. PT RECEPTIVE TO THIS. MEDICATED X1 FOR NAUSEA. DENIES OTHER NEEDS OR CONCERNS AT THIS TIME.
[2020-05-02 04:50] LABS: BASOPHILS ABSOLUTE AUTO 0.03 K/mm3 (0.00-0.23); BASOPHILS PERCENT AUTO 0 % (0-2); EOSINOPHILS ABSOLUTE AUTO 0.13 K/mm3 (0.00-0.68); EOSINOPHILS PERCENT AUTO 2 % (0-6); Hematocrit 30.3 % (33.0-51.0); Hemoglobin 9.6 g/dL (11.5-16.0); IMMATURE GRAN ABSOLUTE AUTO 0.06 K/mm3 (0.00-0.10); IMMATURE GRAN PERCENT AUTO 1 % (0-1); LYMPHOCYTES ABSOLUTE AUTO 1.37 K/mm3 (0.84-5.20); LYMPHOCYTES PERCENT AUTO 18 % (21-46); MONOCYTES ABSOLUTE AUTO 0.72 K/mm3 (0.16-1.47); MONOCYTES PERCENT AUTO 10 % (4-13); Mean Corpuscular HGB 27.5 pg (26.0-34.0); Mean Corpuscular HGB Conc 31.7 g/dL (31.5-36.5); Mean Corpuscular Volume 87 fL (80-100); Mean Platelet Volume 9.3 fL (9.1-12.4); NEUTROPHILS ABSOLUTE AUTO 5.15 K/mm3 (1.96-9.15); NEUTROPHILS PERCENT AUTO 69 % (41-73); Platelet Count 421 K/mm3 (150-400); RDW Coefficient Variation 14.6 % (11.7-14.2); Red Blood Cell Count 3.49 M/mm3 (3.80-5.20); White Blood Cell Count 7.46 K/mm3 (4.00-11.30)
[2020-05-02 05:28] LABS: Anion Gap 6 mmol/L (6-16); Blood Urea Nitrogen 3 mg/dL (8-24); Bun/Creatinine Ratio 5.1 (12.0-20.0); CO2, Blood 30 mmol/L (21-32); Calcium, Blood 8.6 mg/dL (8.5-10.1); Chloride, Blood 98 mmol/L (98-108); Creatinine, Blood 0.59 mg/dL (0.40-1.00); Glomerular Filtration Rate >60 (60-); Glucose, Blood 123 mg/dL (70-99); Potassium, Blood 3.4 mmol/L (3.5-5.5); Sodium, Blood 134 mmol/L (136-145)
--- NOTE | 2020-05-02 06:02 | NUR ---
SHIFT SUMMARY PT RESTED INFREQUENTLY T/O NIGHT. AAOX4/ANXIOUS AT TIMES. DISCOMFORT DECREASED WITH DILAUDID POST OFFICE MARKUP CLERK USE. DENIES NAUSEA/EMESIS. PT UP TO BSC, SBA, TOLERATES WELL. IVF PER ORDERS. GOOD PO INTAKE + URINE OUTPUT. BOWEL CARE CONTINUES. NO ACUTE CHANGES OVER NIGHT. ENCOURAGE MOVEMENT TODAY TOLERATED. PT CURRENTLY RESTING IN BED WITH CALL LIGHT IN REACH. WILL REPORT OFF TO DAY SHIFT RN DURING BEDSIDE REPORTING.
--- NOTE | 2020-05-02 19:19 | NUR ---
SHIFT SUMMARY NO ACUTE CHANGES THIS SHIFT. PT A/O X4; PLEASANT AND COOPERATIVE WITH CARE. PCU PUMP IN PLACE. PT GETS UP WITH STAND BY ASSIST TO BSC. STILL HAS NOT HAD A BM TODAY. ASSISTED WITH REPOSITIONING AND ICE PACK IN PLACE. LIDOCAINE PATCH HELPS WITH PAIN WELL. VSS.
[2020-05-03 04:44] LABS: BASOPHILS ABSOLUTE AUTO 0.02 K/mm3 (0.00-0.23); BASOPHILS PERCENT AUTO 0 % (0-2); EOSINOPHILS PERCENT AUTO 1 % (0-6); Hematocrit 30.8 % (33.0-51.0); Hemoglobin 9.7 g/dL (11.5-16.0); IMMATURE GRAN ABSOLUTE AUTO 0.07 K/mm3 (0.00-0.10); IMMATURE GRAN PERCENT AUTO 1 % (0-1); LYMPHOCYTES PERCENT AUTO 17 % (21-46); MONOCYTES ABSOLUTE AUTO 0.67 K/mm3 (0.16-1.47); MONOCYTES PERCENT AUTO 9 % (4-13); Mean Corpuscular HGB 27.3 pg (26.0-34.0); Mean Corpuscular HGB Conc 31.5 g/dL (31.5-36.5); Mean Corpuscular Volume 87 fL (80-100); Mean Platelet Volume 9.2 fL (9.1-12.4); NEUTROPHILS ABSOLUTE AUTO 5.43 K/mm3 (1.96-9.15); NEUTROPHILS PERCENT AUTO 72 % (41-73); Platelet Count 444 K/mm3 (150-400); RDW Coefficient Variation 14.7 % (11.7-14.2); RDW Standard Deviation 47.2 fL (35.1-46.3); Red Blood Cell Count 3.55 M/mm3 (3.80-5.20); White Blood Cell Count 7.59 K/mm3 (4.00-11.30)
--- NOTE | 2020-05-03 05:06 | NUR ---
SHIFT SUMMARY PT WITH INCREASED ANXIETY THIS SHIFT. AAOX4. DISCOMFORT DECREASED WITH DILAUDID CLINICAL MARKETING MANAGER USE. NO NAUSEA/EMESIS. GOOD PO INTAKE + OUTPUT. UP TO BSC SBA. NO ACUTE CHANGES OVER NIGHT. PT RESTED INFREQUENTLY T/O NIGHT.
[2020-05-03 05:49] LABS: Anion Gap 7 mmol/L (6-16); Blood Urea Nitrogen 2 mg/dL (8-24); Bun/Creatinine Ratio 3.3 (12.0-20.0); CO2, Blood 32 mmol/L (21-32); Calcium, Blood 8.7 mg/dL (8.5-10.1); Chloride, Blood 96 mmol/L (98-108); Glomerular Filtration Rate >60 (60-); Glucose, Blood 119 mg/dL (70-99); Potassium, Blood 3.1 mmol/L (3.5-5.5); Sodium, Blood 135 mmol/L (136-145)
[2020-05-04 08:49] LABS: BASOPHILS ABSOLUTE AUTO 0.03 K/mm3 (0.00-0.23); BASOPHILS PERCENT AUTO 0 % (0-2); EOSINOPHILS ABSOLUTE AUTO 0.04 K/mm3 (0.00-0.68); EOSINOPHILS PERCENT AUTO 1 % (0-6); Hematocrit 35.8 % (33.0-51.0); Hemoglobin 11.5 g/dL (11.5-16.0); IMMATURE GRAN ABSOLUTE AUTO 0.09 K/mm3 (0.00-0.10); IMMATURE GRAN PERCENT AUTO 1 % (0-1); LYMPHOCYTES PERCENT AUTO 14 % (21-46); MONOCYTES ABSOLUTE AUTO 0.67 K/mm3 (0.16-1.47); MONOCYTES PERCENT AUTO 8 % (4-13); Mean Corpuscular HGB 27.6 pg (26.0-34.0); Mean Corpuscular HGB Conc 32.1 g/dL (31.5-36.5); Mean Corpuscular Volume 86 fL (80-100); Mean Platelet Volume 9.2 fL (9.1-12.4); NEUTROPHILS ABSOLUTE AUTO 6.07 K/mm3 (1.96-9.15); NEUTROPHILS PERCENT AUTO 76 % (41-73); Platelet Count 463 K/mm3 (150-400); RDW Coefficient Variation 14.9 % (11.7-14.2); RDW Standard Deviation 46.5 fL (35.1-46.3); Red Blood Cell Count 4.17 M/mm3 (3.80-5.20)
[2020-05-04 09:18] LABS: Anion Gap 6 mmol/L (6-16); Blood Urea Nitrogen 5 mg/dL (8-24); Bun/Creatinine Ratio 9.2 (12.0-20.0); CO2, Blood 29 mmol/L (21-32); Calcium, Blood 9.2 mg/dL (8.5-10.1); Chloride, Blood 102 mmol/L (98-108); Creatinine, Blood 0.55 mg/dL (0.40-1.00); Glomerular Filtration Rate >60 (60-); Glucose, Blood 119 mg/dL (70-99); Potassium, Blood 3.6 mmol/L (3.5-5.5); Sodium, Blood 137 mmol/L (136-145)
--- NOTE | 2020-05-04 13:06 | NUR ---
Patient immediately tells me her frustrations about not having her pain managed over the weekend and the process she followed to get the problem resolved. Patient's RN then comes in to distribute more medications and patientasks if I could come back later. I inform her that I will attempt to return but I tell her that I am the only geospatial developer in the hospital this day and so returning will be a challenge.
--- NOTE | 2020-05-04 18:33 | NUR ---
SUMMARY: NO ACUTE CHANGE TODAY. A/O, NOTED HTN, PT ASYMPTOMATIC, MEDICATED PER EMAR. VS OTHERWISE STBLE. PT HAS BEEN PAINFUL/ANXIOUS. MEDICATED PER EMAR. PT REPORT PASSING GAS, NO BM TODAY. PT PAINFUL WITH REPOSITIONING IN BED, REFUSED TO USE COMMODE TODAY, AND USED BEDPAN. PT/OT ORDERED. PICC LINE PLACED TODAY. PLAN IS DC HOME AND OUTPT ANTIBIOTICS. NO SAFETY CONCERNS.
--- NOTE | 2020-05-04 21:42 | NUR ---
SPOKE WITH PT ABOUT USING A HOSPITAL CPAP AND SHE DECLINED STATING LAST TIME SHE WOKE UP WITH A BIPAP ON AND FREAKED OUT. PT ALSO CITING NIGHT TERRORS AND WOULD LIKE TO SPEAK WITH AN MD ABOUT NEED/USE OF CPAP.
--- NOTE | 2020-05-05 03:50 | NUR ---
WIRE FRAME LAMPSHADE MAKER SUMMARY A/OX4, RESTLESS/ANXIOUS T/O NIGHT. MEDICATED FOR PAIN SEVERAL TIMES W/O RELIEF, PT CRYING OUT IN PAIN. IDENTIFICATION OFFICER PROVIDER NOTIFIED, NEW ORDERS FOR ADDITIONAL IV DILAUDID. CURRENTLY RESTING IN BED. NO ACUTE CHANGES AT THIS TIME. BED IN LOWEST POSITION WITH CALL LIGHT IN REACH. WILL CONTINUE TO MONITOR AND REPORT TO ONCOMING RN.
[2020-05-05 04:38] LABS: BASOPHILS ABSOLUTE AUTO 0.04 K/mm3 (0.00-0.23); BASOPHILS PERCENT AUTO 0 % (0-2); EOSINOPHILS ABSOLUTE AUTO 0.08 K/mm3 (0.00-0.68); EOSINOPHILS PERCENT AUTO 1 % (0-6); Hematocrit 30.3 % (33.0-51.0); Hemoglobin 9.5 g/dL (11.5-16.0); IMMATURE GRAN ABSOLUTE AUTO 0.14 K/mm3 (0.00-0.10); IMMATURE GRAN PERCENT AUTO 1 % (0-1); LYMPHOCYTES ABSOLUTE AUTO 1.73 K/mm3 (0.84-5.20); LYMPHOCYTES PERCENT AUTO 16 % (21-46); MONOCYTES ABSOLUTE AUTO 0.92 K/mm3 (0.16-1.47); MONOCYTES PERCENT AUTO 8 % (4-13); Mean Corpuscular HGB 27.3 pg (26.0-34.0); Mean Corpuscular HGB Conc 31.4 g/dL (31.5-36.5); Mean Corpuscular Volume 87 fL (80-100); Mean Platelet Volume 9.4 fL (9.1-12.4); NEUTROPHILS ABSOLUTE AUTO 8.19 K/mm3 (1.96-9.15); NEUTROPHILS PERCENT AUTO 74 % (41-73); Platelet Count 460 K/mm3 (150-400); RDW Coefficient Variation 15.5 % (11.7-14.2); RDW Standard Deviation 48.2 fL (35.1-46.3); Red Blood Cell Count 3.48 M/mm3 (3.80-5.20)
[2020-05-05 04:54] LABS: Anion Gap 4 mmol/L (6-16); Blood Urea Nitrogen 7 mg/dL (8-24); Bun/Creatinine Ratio 10.8 (12.0-20.0); CO2, Blood 30 mmol/L (21-32); Calcium, Blood 8.8 mg/dL (8.5-10.1); Chloride, Blood 102 mmol/L (98-108); Creatinine, Blood 0.65 mg/dL (0.40-1.00); Glomerular Filtration Rate >60 (60-); Glucose, Blood 129 mg/dL (70-99); Sodium, Blood 136 mmol/L (136-145)
--- NOTE | 2020-05-05 15:44 | NUR ---
Patient is lying in bed and alert. Patient's friend, Billy, is bedside. Patient and Billy tell me about the depth of this struggle and pain and how it has, at times completely overwhelmed them. Patient talks about how she appreciates Dr. Lopez's care and understanding since he has had a similar medical issue at one time. They talk about their fears about DC in terms of pain management at home but also feel they have a great team of people who can help with many of their needs. I normalize their experience and provide therapeutic listening, pastoral counseling psychologist and prayer. Patient and Billy respond well and show signs of reduced stress. I will continue to remain available to patient and family.
--- NOTE | 2020-05-05 17:43 | NUR ---
SUMMARY: NO ACUTE CHANGE TODAY. HTN NOTED, DR. PASTRANA AWARE. VS OTHERWISE STABLE, PT A/O. PT CONTINUES TO HAVE PAIN/ANXIETY WITH MOVEMENT, AND AT REST AT LOWER BACK AND PELVIS. ABLE TO WORK WITH OT/PT SOME TODAY AND MOVE TO CHAIR, BUT IS MOST OFTEN USING BEDPAN TO VOID. MOBILITY ENCOURAGED. PT USES HEATING PAD AT TIMES FOR PAIN, OTHERWISE MEDICATED PER EMAR. PAIN MANAGEMENT DISCUSSED WITH DR. PASTRANA, SEE NEW ORDERS. ABX INFUSED THROUGH PICC LINE. PLAN IS CONTINUED PAIN MANAGEMENT AND ABX TREATMENT. WILL REPORT TO AKHIL RN.
--- NOTE | 2020-05-06 03:29 | NUR ---
SHIFT SUMMARY POD1 LAP LOOP ILEOSTOMY. VSS. PT REPORTS PAIN 5/10, WELL CONTROLLED AND MANAGED WITH DILAUDID. PT SLEPT T/O SHIFT. WENT TO BSC X 3, TOLERATING MOV'T WELL, MILD SHAKY. PT TOLERATING ICE CHIPS AND WATER, DENIES N/V. ILEOSTOMY INTACT, BEEFY RED, OUTPUT OF 300ML. 2 LAP SITES ON R SIDE,CDI WITH WOUND GLUE. PT IS PASSING FLATUS IN HER ILEOSTOMY BAG. ADEQUATE URINE OUTPUT, DENIES DIFFICULTY VOIDING. LUNGS ARE CLEAR. PT IS COMFORTABLE IN HER BED AT THIS TIME. CALL LIGHT WITHIN REACH.
--- NOTE | 2020-05-06 04:29 | NUR ---
SHIFT SUMMARY PT AOX4. PT HAS TOLERABLE PAIN AT THE BEGINNING OF THE SHIFT. BUT SHE REPORTS SEVERE PAIN AFTER MIDNIGHT. PAIN MANAGED WITH MSCONTIN SCHEDULED, MORPHINE SULFATE PO AND TYLENOL. ENC PT TO MOVE AROUND. REPOSITIONED APPROPRIATELY. KPAD IS ALSO USE FOR PAIN BUT IT DOES NOT SEEM TO HELP. SHE IS ALSO HYPERTENSIVE. SHE REMAIN TO USE BEDPAN TO VOID. CONTINOUS BIOX IN PLACED. PT TOLERATING REG DIET. DENIES N/V. LUNG SOUNDS CLEAR. CALL LIGHT WITHIN REACH. WILL REPORT TO AM VLADIMIR.
--- NOTE | 2020-05-06 11:00 | NUR ---
THERAPY WORKING WITH PT.
--- NOTE | 2020-05-06 14:12 | NUR ---
DR PASTRANA RECENTLY TO SEE PT. DISCUSSED PT'S STATUS. REPORTS TO START MEDICATIONS NOW AND NEXT DOSE SCHEDULED. SEE ORDERS.
--- NOTE | 2020-05-06 15:45 | NUR ---
Spiritual care visit conducted. Patient is sitting on a chair and alert. Patient has boyfriend Billy present with her. Pateint tells me that she may be able to DC next day. She goes on to explain that this day has been a break through day and that she can actually feel that the pain is decreased some and managed with new pain medications (although patient admits that the exchange teller from IV pain medications and and certain drugs to new ones was a little rough). Patient talks about having a much higher level of hope of success once she is home than she could visualize 2 days ago. We also talk about her yancy and the prayers and support from her oriental orthodox and community. I listen empathically and provide recitation of scripture and prayer. I will continue to remain available to patient and family.
--- NOTE | 2020-05-06 16:21 | NUR ---
SHIFT SUMMARY PT EATING AND DRINKING, VOIDING. PT REPORTS STILL PAINFUL BUT HAVING A BETTER ATTITUDE ABOUT IT AND DOING BETTER TODAY. PT SEEN BY [facility] STAFF TODAY INCLUDING [facility] CASE MANAGEMENT, PT/OT, . FAMILY ALSO TO SEE PT WHICH WERE DEMONSTRATED HOW TO GIVE IV PUSH PER SUPERVISOR FINISHING REQ TO BE ABLE TO SEE WHAT HOME HEALTH WOULD BE DOING WHEN PT PLAN TO D/C HOME TOMMORROW. PT BEEN PLEASANT AND COOPERATIVE. PT WAS UP TO CHAIR TODAY.
--- NOTE | 2020-05-06 18:43 | NUR ---
Pt denies headaches, ringing in ears dizziness or recent falls. Pt states no difficulty swallowing but in recent past major dental issues had teeth pulled and new dentures. She states appetiete and sleep are poor. She has genral back and joint pain at times. Pt states pain medications are starting to be effective. She denies alcohol states minimal marijuana use not tolerating it lately. Denies kaelyn homeopathic medications. Review of pain medication, review judicous bowel care and medicatiosn, discussed strategies to maintain nutrituon and hydation, Sleep hygiene and fall safety. Pt is already doing aroma therapy reveiw of additional strategies and diversion. Gave her our contact for supportive care.Will follow up.
--- NOTE | 2020-05-07 03:59 | NUR ---
SHIFT SUMMARY PT IS A/O X4. PT HAS BEEN USING BEDPAN, [place] [facility]. PAIN IS BEING MANAGED WITH MS CONTIN SCHEDULED WELL PO MSIR PRN Q4. PT SAY THIS IS WORKING WELL FOR MANAGING PAIN. PT DID HAVE POSITIVE BLOOD CULTURES COME BACK; NOTIFIED ON-CALL HOSPITALIST - NO NEW ORDERS. PLAN IS TO DC HOME TODAY. PT IS RESTING IN BED AT THIS TIME WITH CALL LIGHT IN REACH.
--- NOTE | 2020-05-07 13:34 | NUR ---
DR PASTRANA HERE RECENTLY TO SEE PT.
[2020-05-07] MEDS ORDERED: VISBIOME 112.51 EACH PO (13:49)
[2020-05-07] MEDS ORDERED: BUSP5 PO (13:50)
[2020-05-07] MEDS ORDERED: CEFTRIAXON2 GM/50 M1 IV (13:52)
[2020-05-07] MEDS ORDERED: LISI10 PO (13:56)
[2020-05-07] MEDS ORDERED: MORP30ER PO (13:58)
[2020-05-07] MEDS ORDERED: MORP30 PO (14:00)
[2020-05-07] MEDS ORDERED: KLOR-CON 1010 ME1 PO (14:03)
[2020-05-07] MEDS ORDERED: Senna-Extra17.2 MG PO (14:04)
[2020-05-07] MEDS ORDERED: HYDCHL25 PO (15:38)
--- NOTE | 2020-05-07 15:59 | NUR ---
DISCHARGE: PT EATING AND DRINKING, VOIDING, PASSING GAS WITH RECENT BM PER PT. PT REPORTS PAIN TOLERABLE ON PO PAIN MEDICATION. PT CLEARED THERAPY TO GO HOME WITH H.H.. FREELANCE GRAPHIC DESIGNER AND HOME HEALTH BEEN IN CONTACT WITH PT. PT REPORTS ABLE TO BORROW EQUIPMENT. PT SENT WITH BELONGINGS, PICC, PAPERWORK INCLUDING SCRIPTS. PT OUT BY W/C WITH FAMILY GIVING PT RIDE HOME.
== END 2020-05-07 16:00 | disposition home or self-care (01) | DRG 862 ==
LOC: ER 11:35 → PCU 21:13 → ERHOLD 21:13 → PCU 23:56 → SURS 05-01 13:30
PROVIDERS: Emergency Medicine; Family Medicine; Nurse Practitioner Acute Care; ADMIT Internal Medicine
PROC: 0SB23ZX Excision of Lumbar Vertebral Disc, Percutaneous Approach, Diagnostic (ICD-10-PCS; principal; 2020-04-30)
PROC: 02HV33Z Insertion of Infusion Device into Superior Vena Cava, Percutaneous Approach (ICD-10-PCS; 2020-05-04)
DX: T81.44XA Sepsis following a procedure, initial encounter (principal); J96.01 Acute respiratory failure with hypoxia; K68.12 Psoas muscle abscess; A41.51 Sepsis due to Escherichia coli [E. coli]; M86.9 Osteomyelitis, unspecified; E66.2 Morbid (severe) obesity with alveolar hypoventilation; Z51.5 Encounter for palliative care; Z20.822 Contact with and (suspected) exposure to COVID-19; M46.46 Discitis, unspecified, lumbar region; F41.9 Anxiety disorder, unspecified; E87.6 Hypokalemia; E88.81 Metabolic syndrome and other insulin resistance; Z68.39 Body mass index [BMI] 39.0-39.9, adult
CPT/HCPCS: 0241U; 20225; 36415; 36569; 72158; 74177; 77012; 80048; 80053; 83605; 83690; 83735; 84100; 85025; 85027; 85651; 86140; 87040; 87071; 87075; 87077; 87186; 87205; 88305; 94762; 96361; 96374; 96375; 96376; 97110; 97112; 97116; 97162; 97166; 97530; 97535; 99285-25; A9270; A9579; C1751; J0696; J1170; J1650; J1885; J2060; J2405; J3010; J3370; J7030; J7050; Q9967

== ENCOUNTER → 2020-05-13 | Outpatient (CLI) | payer OTHER ==
[~2020-05-13] MED LIST changes: +BUSP5 PO; +CEFTRIAXON2 GM/50 M1 IV; +HYDCHL25 PO; +KLOR-CON 1010 ME1 PO; +LISI10 PO; +MORP30 PO; +MORP30ER PO; +Senna-Extra17.2 MG PO; +VISBIOME 112.51 EACH PO
[2020-05-13 18:04] LABS: BASOPHILS ABSOLUTE AUTO 0.04 K/mm3 (0.00-0.23); BASOPHILS PERCENT AUTO 1 % (0-2); EOSINOPHILS ABSOLUTE AUTO 0.14 K/mm3 (0.00-0.68); EOSINOPHILS PERCENT AUTO 2 % (0-6); Hematocrit 33.1 % (33.0-51.0); Hemoglobin 10.1 g/dL (11.5-16.0); IMMATURE GRAN ABSOLUTE AUTO 0.05 K/mm3 (0.00-0.10); IMMATURE GRAN PERCENT AUTO 1 % (0-1); LYMPHOCYTES ABSOLUTE AUTO 1.77 K/mm3 (0.84-5.20); LYMPHOCYTES PERCENT AUTO 31 % (21-46); MONOCYTES PERCENT AUTO 10 % (4-13); Mean Corpuscular HGB 26.8 pg (26.0-34.0); Mean Corpuscular HGB Conc 30.5 g/dL (31.5-36.5); Mean Corpuscular Volume 88 fL (80-100); Mean Platelet Volume 9.8 fL (9.1-12.4); NEUTROPHILS ABSOLUTE AUTO 3.17 K/mm3 (1.96-9.15); NEUTROPHILS PERCENT AUTO 55 % (41-73); Platelet Count 427 K/mm3 (150-400); RDW Coefficient Variation 15.1 % (11.7-14.2); RDW Standard Deviation 48.5 fL (35.1-46.3); Red Blood Cell Count 3.77 M/mm3 (3.80-5.20); White Blood Cell Count 5.77 K/mm3 (4.00-11.30)
[2020-05-13 20:53] LABS: Alanine Aminotransfer (ALT/SGP 41 U/L (12-78); Albumin, Blood 2.9 g/dL (3.4-5.0); Albumin/Globulin Ratio 0.6 (0.8-1.8); Alk Phos 197 U/L (50-136); Anion Gap 5 mmol/L (6-16); Aspartate Aminotrans (AST/SGOT 24 U/L (12-37); Bilirubin, Total 0.4 mg/dL (0.1-1.0); Blood Urea Nitrogen 10 mg/dL (8-24); Bun/Creatinine Ratio 15.6 (12.0-20.0); CO2, Blood 29 mmol/L (21-32); Calcium, Blood 8.9 mg/dL (8.5-10.1); Chloride, Blood 102 mmol/L (98-108); Creatinine, Blood 0.64 mg/dL (0.40-1.00); Globulin, Blood 4.8 g/dL (2.2-4.0); Glomerular Filtration Rate >60 (60-); Glucose, Blood 112 mg/dL (70-99); Potassium, Blood 3.9 mmol/L (3.5-5.5); Sodium, Blood 136 mmol/L (136-145); Total Protein, Blood 7.7 g/dL (6.4-8.2)
== END | disposition home or self-care (01) ==
LOC: LAB SHORT 11:30 → LAB 11:30 → EDSTATUS 05-11 09:45 → LAB FUT 05-11 09:45
PROVIDERS: Internal Medicine Infectious Disease
DX: Z00.00 Encounter for general adult medical examination without abnormal findings (principal); Z11.59 Encounter for screening for other viral diseases; Z13.6 Encounter for screening for cardiovascular disorders; M46.46 Discitis, unspecified, lumbar region; K68.12 Psoas muscle abscess
CPT/HCPCS: 80053; 85025

== ENCOUNTER → 2020-06-02 | Outpatient (CLI) | payer OTHER ==
[2020-06-02 12:40] LABS: BASOPHILS ABSOLUTE AUTO 0.04 K/mm3 (0.00-0.23); BASOPHILS PERCENT AUTO 1 % (0-2); EOSINOPHILS ABSOLUTE AUTO 0.16 K/mm3 (0.00-0.68); EOSINOPHILS PERCENT AUTO 2 % (0-6); Hematocrit 38.8 % (33.0-51.0); IMMATURE GRAN ABSOLUTE AUTO 0.05 K/mm3 (0.00-0.10); IMMATURE GRAN PERCENT AUTO 1 % (0-1); LYMPHOCYTES ABSOLUTE AUTO 1.29 K/mm3 (0.84-5.20); LYMPHOCYTES PERCENT AUTO 19 % (21-46); MONOCYTES ABSOLUTE AUTO 0.59 K/mm3 (0.16-1.47); MONOCYTES PERCENT AUTO 9 % (4-13); Mean Corpuscular HGB 26.8 pg (26.0-34.0); Mean Corpuscular HGB Conc 30.9 g/dL (31.5-36.5); Mean Corpuscular Volume 87 fL (80-100); Mean Platelet Volume 9.3 fL (9.1-12.4); NEUTROPHILS ABSOLUTE AUTO 4.52 K/mm3 (1.96-9.15); NEUTROPHILS PERCENT AUTO 68 % (41-73); Platelet Count 404 K/mm3 (150-400); RDW Coefficient Variation 15.3 % (11.7-14.2); RDW Standard Deviation 48.6 fL (35.1-46.3); Red Blood Cell Count 4.48 M/mm3 (3.80-5.20); White Blood Cell Count 6.65 K/mm3 (4.00-11.30)
[2020-06-02 13:38] LABS: Alanine Aminotransfer (ALT/SGP 40 U/L (12-78); Albumin, Blood 3.1 g/dL (3.4-5.0); Albumin/Globulin Ratio 0.7 (0.8-1.8); Alk Phos 184 U/L (50-136); Anion Gap 5 mmol/L (6-16); Aspartate Aminotrans (AST/SGOT 30 U/L (12-37); Bilirubin, Total 0.2 mg/dL (0.1-1.0); Blood Urea Nitrogen 9 mg/dL (8-24); CO2, Blood 28 mmol/L (21-32); Calcium, Blood 9.3 mg/dL (8.5-10.1); Chloride, Blood 103 mmol/L (98-108); Globulin, Blood 4.7 g/dL (2.2-4.0); Glomerular Filtration Rate >60 (60-); Glucose, Blood 116 mg/dL (70-99); Potassium, Blood 3.7 mmol/L (3.5-5.5); Sodium, Blood 136 mmol/L (136-145); Total Protein, Blood 7.8 g/dL (6.4-8.2)
== END | disposition home or self-care (01) ==
LOC: LAB HH 11:00
PROVIDERS: Student in an Organized Health Care Education/Training Program
DX: K68.12 Psoas muscle abscess (principal); M46.46 Discitis, unspecified, lumbar region; M46.26 Osteomyelitis of vertebra, lumbar region; Z45.2 Encounter for adjustment and management of vascular access device
CPT/HCPCS: 80053; 85025

== ENCOUNTER → 2020-06-10 | Outpatient (CLI) | payer OTHER ==
[2020-06-19 12:09] LABS: CANNABIDIOL Negative (.); CANNABINOID CONFIRMATION Positive (.); CANNABINOL Negative (.); CARBOXY-THC 5.8 ng/mL (.); HYDROXY-THC Negative (.); TETRAHYDROCANNABINOL(THC) Negative (.)
[2020-06-23 15:11] LABS: 6-ACETYLMORPHINE Negative (.); CODEINE Negative (.); DIHYDROCODEINE Negative (.); HYDROCODONE Negative (.); HYDROMORPHONE Negative (.); MORPHINE 5.5 ng/mL (.); OPIATE CONFIRMATION Positive (.); OXYCODONE Negative (.); OXYCODONES CONFIRMATION Negative (.); OXYMORPHONE Negative (.)
== END | disposition home or self-care (01) ==
LOC: LAB SHORT 17:34
PROVIDERS: Family Medicine
DX: G89.4 Chronic pain syndrome (principal)

== ENCOUNTER → 2020-08-19 | Outpatient (CLI) | payer OTHER ==
[2020-08-19 13:51] LABS: U Amphetamine Screen Not Detected
[2020-08-19 13:52] LABS: U Barbituate Screen Not Detected; U Benzodiazapine Screen Not Detected; U Buprenorphine Screen Not Detected; U Cannabinoids Screen Not Detected; U Cocaine Screen Not Detected; U Methadone Screen Not Detected; U Methamphetamine Screen Not Detected; U Opiates Screen DETECTED; U Oxycodone Screen DETECTED; U Phencyclidine Screen Not Detected; U Propoxyphene Screen Not Detected
[2020-08-28 06:09] LABS: 6-ACETYLMORPHINE Not Detected (.)
== END | disposition home or self-care (01) ==
LOC: LAB 08:39 → LAB SHORT 08:39
PROVIDERS: Physician Assistant Medical
DX: Z51.81 Encounter for therapeutic drug level monitoring (principal); Z79.891 Long term (current) use of opiate analgesic
CPT/HCPCS: G0480